=== PATIENT | male | born 1980 | race Asian ===

== ENCOUNTER 2017-10-18 12:14 | Emergency (ER) | payer BC ==
--- NOTE | 2017-10-18 12:32 | CPEKG ---
Heart Rate: 82 RR Interval: 732 P-R Interval: 148 QRSD Interval: 108 QT Interval: 388 QTC Interval: 453 P [place]: 57 QRS [place]: 46 T Wave [place]: 22 EKG Severity - ABNORMAL ECG - EKG Impression: SINUS RHYTHM EKG Impression: INCOMPLETE RIGHT BUNDLE BRANCH BLOCK Electronically Signed By: Henna Kendall 18-Oct-2017 15:02:02
[2017-10-18 12:42] LABS: PLATELET COUNT 217 10^3/uL (150-400)
--- NOTE | 2017-10-18 12:48 | EDPHY ---
H & P Stated Complaint: Abd pain, left forearm pain Time Seen by Provider: 10/18/17 12:37 HPI/ROS: CHIEF COMPLAINT: Left upper abdominal and left arm pain HISTORY OF PRESENT ILLNESS: 37-year-old male generally healthy complaining left upper quadrant and left forearm pain which started when he was walking up stairs this morning. The pain stopped when he rested. He notes prior history of similar over the past few months. Today symptoms were not accompanied by nausea vomiting, diaphoresis, dyspnea. He last exercised 2 days ago, completed a 1 hr exertional spinning class and did not have the symptoms at that time, did not need to stop prematurely, did not experience chest pain with exertion. REVIEW OF SYSTEMS: A ten point review of systems was performed and is negative with the exception of the items mentioned in the HPI PAST MEDICAL & SURGICAL HISTORY: [place] disease age 6 SOCIAL HISTORY: Nonsmoker. No drug use. FAMILY HISTORY: No family history of premature coronary disease, coagulopathic disorder. PHYSICAL EXAM (Prior to examination, patient consented to physical exam, hands were washed and my usual and customary physical exam procedures followed) 1) GENERAL: Well-developed, well-nourished, alert and oriented. Appears to be in no acute distress. 2) HEAD: Normocephalic, atraumatic 3) HEENT: Pupils equal, round, reactive to light bilaterally. Sclera anicteric. Nasopharynx, oropharynx, clear, no lesions. Ears bilaterally with normal tympanic membranes. 4) NECK: Full range of motion, no meningeal signs. 5) LUNGS: Clear auscultation bilaterally, no wheezes, no rhonchi, no retractions. 6) HEART: Regular rate and rhythm, no murmur, no heave, no gallop. 7) ABDOMEN: No guarding, no rebound, no focal tenderness, negative McBurney's, negative Cook's, negative Rovsing's, negative peritoneal sign, 8) MUSCULOSKELETAL: Moving all extremities, no focal areas of tenderness, no obvious trauma. No peripheral edema or discoloration. 9) BACK: No CVA tenderness, no midline vertebral tenderness, no fluctuance, no step-off, no obvious trauma, no visual or palpable abnormality. 10) SKIN: No rash, no petechiae. 11) Psychiatric: Patient is oriented X 3, there is no agitation. DIFFERENTIAL DIAGNOSIS: In no particular order, including but not limited to myocardial ischemia, pulmonary embolus, chest wall pain, pleural inflammation and pulmonary infectious causes. - Personal History Current Tetanus/Diphtheria Vaccine: Yes Current Tetanus Diphtheria and Acellular Pertussis (TDAP): Yes - Medical/Surgical History Hx Asthma: No Hx Chronic Respiratory Disease: No Hx Diabetes: No Hx Cardiac Disease: No Hx Renal Disease: No Hx Cirrhosis: No Hx Alcoholism: No Hx HIV/AIDS: No Hx Splenectomy or Spleen Trauma: No Other PMH: PMH: kawas[place], - Social History Smoking Status: Never smoked Constitutional: Initial Vital Signs Temperature (C) 36.5 C 10/18/17 12:20 Heart Rate 97 10/18/17 12:20 Respiratory Rate 18 10/18/17 12:20 Blood Pressure 160/76 H 10/18/17 12:20 O2 Sat (%) 98 10/18/17 12:20 O2 Delivery Mode Room Air Allergies/Adverse Reactions: No Known Allergies Allergy (Unverified 10/18/17 12:23) Home Medications: Medication Instructions Recorded NK [No Known Home Meds] 10/18/17 Medical Decision Making - Diagnostics Imaging Results: Imaging Impressions Chest X-Ray 10/18/17 12:45 Impression: Normal chest x-ray. Images reviewed by myself ED Course/Re-evaluation: Patient was re-evaluated with serial examinations. Most recently at 1:45 p.m.. He remains asymptomatic in the ER. Discussed case with secondary supervising physician Dr. Kendall in the ER. The patient I discussed possible etiologies. I think that cardiac etiology such as [place], angina is less than likely this patient especially as he describes exertional cardiac work out 2 days ago, working out 60 min 2 days ago in a spinning class and did not experience chest pain with exertion, did not experience dyspnea out of proportion activity, did not need to cease activity prematurely. I think that pulmonary embolus is less than likely given the patient's lack of risk factors, negative perc score. In addition patient has a negative family history and low risk for cardiac disease. He has emergency department patient has a nontender abdomen no guarding no rebound. Plan will be discharge, with close follow-up. Usual and customary discharge precautions and instructions provided. - Data Points Laboratory Results: Laboratory Results 10/18/17 12:33 10/18/17 12:33 10/18/17 10/18/17 10/18/17 12:33 12:33 12:33 WBC 5.88 10^3/uL 10^3/uL (3.80-9.50) RBC 5.86 10^6/uL 10^6/uL (4.40-6.38) Hgb 16.2 g/dL g/dL (13.7-17.5) Hct 49.3 % % (40.0-51.0) MCV 84.1 fL fL (81.5-99.8) MCH 27.6 pg L pg (27.9-34.1) MCHC 32.9 g/dL g/dL (32.4-36.7) RDW 13.3 % % (11.5-15.2) Plt Count 217 10^3/uL 10^3/uL (150-400) MPV 9.4 fL fL (8.7-11.7) Neut % (Auto) 50.4 % % (39.3-74.2) Lymph % (Auto) 40.0 % % (15.0-45.0) Sutter % (Auto) 7.5 % % (4.5-13.0) Eos % (Auto) 1.4 % % (0.6-7.6) Baso % (Auto) 0.5 % % (0.3-1.7) Nucleat RBC Rel Count 0.0 % % (0.0-0.2) Absolute Neuts (auto) 2.97 10^3/uL 10^3/uL (1.70-6.50) Absolute Lymphs (auto) 2.35 10^3/uL 10^3/uL (1.00-3.00) Absolute Monos (auto) 0.44 10^3/uL 10^3/uL (0.30-0.80) Absolute Eos (auto) 0.08 10^3/uL 10^3/uL (0.03-0.40) Absolute Basos (auto) 0.03 10^3/uL 10^3/uL (0.02-0.10) Absolute Nucleated RBC 0.00 10^3/uL 10^3/uL (0-0.01) Immature Gran % 0.2 % % (0.0-1.1) Immature Gran # 0.01 10^3/uL 10^3/uL (0.00-0.10) Sodium 144 mEq/L mEq/L (135-145) Potassium 4.2 mEq/L mEq/L (3.5-5.2) Chloride 103 mEq/L mEq/L (97-110) Carbon Dioxide 27 mEq/l mEq/l (22-31) Anion Gap 14 mEq/L mEq/L (8-16) BUN 18 mg/dL mg/dL (7-23) Creatinine 1.1 mg/dL mg/dL (0.7-1.3) Estimated GFR > 60 Glucose 98 mg/dL mg/dL (70-100) Calcium 9.5 mg/dL mg/dL (8.5-10.4) Total Bilirubin 0.7 mg/dL mg/dL (0.1-1.4) Conjugated Bilirubin 0.5 mg/dL mg/dL (0.0-0.5) Unconjugated Bilirubin 0.2 mg/dL mg/dL (0.0-1.1) AST 32 IU/L IU/L (17-59) ALT 22 IU/L IU/L (21-72) Alkaline Phosphatase 65 IU/L IU/L (38-126) Troponin I < 0.012 ng/mL ng/mL (0.000-0.034) Total Protein 8.0 g/dL g/dL (6.3-8.2) Albumin 4.6 g/dL g/dL (3.5-5.0) Lipase 73 IU/L IU/L (23-300) Departure - Departure Disposition: Home, Routine, Self-Care Clinical Impression: Abdominal pain Qualifiers: Abdominal location: left upper quadrant Qualified Code(s): R10.12 - Left upper quadrant pain Condition: Good Instructions: Acute Abdominal Pain (ED) Additional Instructions: Return to the ER if you develop chest pain, shortness of breath, or any other symptoms that concern you. Referrals: Nerissa Franklin, DO [Doctor of Osteopathy] - 1-2 days without fail
[2017-10-18 14:02] VITALS: BP 130/80
== END 2017-10-18 14:03 | disposition home or self-care (01) ==
DX: R10.12 Left upper quadrant pain (principal)